=== PATIENT | female | born 1985 | race Asian ===

== ENCOUNTER 2022-02-14 02:51 | Emergency (ER) | payer BC ==
[~2022-02-14] VITALS: Ht 167.6 cm; Wt 85.0 kg
[2022-02-14] MEDS ORDERED: PANTOPRAZOLE SODIUM 40 MG/VIAL IV STA (03:44)
[2022-02-14] MEDS ORDERED: MORPHINE SULFATE 4 MG/ML CPJ (NOT FOR IM USE) IV STA (03:44)
[2022-02-14] MEDS ORDERED: METOCLOPRAMIDE HCL 10MG/2ML VIAL IV STA (03:44)
[2022-02-14 04:30] LABS: CHLORIDE 110 mEq/L (98-107)
[2022-02-14 04:36] LABS: HCG SCREEN NEGATIVE
[2022-02-14 04:46] LABS: HEMOGLOBIN. 12.1 g/dL (12.0-16.0); MEAN CORPUSCULAR HEMOGLOBIN 29.2 pg (28.0-32.0); MEAN CORPUSCULAR VOLUME 89.3 fL (81.0-99.0); MEAN PLATELET VOLUME 8.6 fl (7.4-10.4); PLATELET 117 x1000/uL (130-400); RED BLOOD CELL COUNT 4.14 mill/uL (4.2-5.4); RED CELL DISTRIBUTION WIDTH 17.7 % (11.6-14.6)
[2022-02-14] MEDS ORDERED: IOHEXOL-300 100 ML BOTTLE ONE (05:31)
[2022-02-14 06:26] LABS: INR 3.2; PROTHROMBIN TIME 31.7 sec (9.6-11.0)
[2022-02-14 06:28] LABS: CLARITY URINE CLEAR (CLEAR); COLOR URINE YELLOW (YELLOW); KETONES URINE TRACE (NEGATIVE); LEUKOCYTE ESTERASE URINE NEGATIVE (NEGATIVE); NITRITE URINE NEGATIVE (NEGATIVE); OCCULT BLOOD URINE NEGATIVE (NEGATIVE); PROTEIN URINE TRACE (NEGATIVE); SPECIFIC GRAVITY URINE 1.054 (1.005-1.030)
[2022-02-14 07:20] LABS: PLATELET ESTIMATE DECREASED
[2022-02-14 11:45] VITALS: BP 123/69
== END 2022-02-14 12:51 | disposition left against medical advice (07) ==
LOC: ER 02:51 → EDBEDREQTM 05:39 → EDBEDREQ 05:39 → CANBEDREQ 12:44 → ER 12:51
DX: K92.0 Hematemesis (principal); R10.13 Epigastric pain; K76.9 Liver disease, unspecified; D68.9 Coagulation defect, unspecified; Z86.718 Personal history of other venous thrombosis and embolism; Z79.01 Long term (current) use of anticoagulants
CPT/HCPCS: 36415; 74177; 80053; 81003; 81025; 83605; 83690; 84703; 85025; 85610; 86850; 86900; 86901; 96374; 96375; 99285; C9113; J2270; J2765; Q9967